=== PATIENT | male | born 1950 | race Caucasian/White ===

== ENCOUNTER 2021-11-25 16:30 | Emergency (ER) | payer BC ==
[~2021-11-25] VITALS: Ht 182.9 cm; Wt 66.7 kg
[~2021-11-25 16:30] MED LIST: ADDERALL 10 MG10 MG PO; AMBIEN 5 MG TABL5 M1 PO; ASPIR 8181 M1 PO; ATORVASTATIN CA40 MG PO; CELEXA20 MG PO; FLOMAX0.4 MG; LISINOPRIL5 MG PO; LOPRESSOR50 PO; NITROGLYCERIN0.4 MG; NORCO 5-325 TA1 EACH; OMEPRAZOLE40 MG PO; PERCOCET; XANAX 0.5 MG0.5 MG PO
[2021-11-25] MEDS ORDERED: CIPRO500 M1 PO (16:50)
[2021-11-25 17:19] LABS: URINE BILIRUBIN NEGATIVE (Negative); URINE BLOOD NEGATIVE (Negative); URINE COLOR YELLOW; URINE GLUCOSE-RANDOM NEGATIVE (Negative); URINE KETONES 1+ (Negative); URINE LEUKOCYTES-REFLEX TRACE (Negative); URINE NITRITE-REFLEX NEGATIVE (Negative); URINE PROTEIN NEGATIVE (Negative); URINE UROBILINOGEN 0.2 E.U./dl (0.2-1.0)
[2021-11-25] MEDS ORDERED: CEPHALEXIN500 MG PO (17:33)
[2021-11-25 17:43] LABS: URINE CLARITY HAZY
[2021-11-25 17:54] VITALS: BP 147/90
[2021-11-25 18:19] LABS: SQUAMOUS 4-10 Moderate /LPF (0-3)
[2021-11-25 18:20] LABS: BACTERIA-REFLEX None Seen /HPF (None Seen); CASTS None Seen /LPF (None Seen); CRYSTALS None Seen /LPF (None Seen); URINE RBC None Seen /HPF (0-2); URINE WBC-REFLEX 0-5 Rare /HPF (0-5)
== END 2021-11-25 17:55 | disposition home or self-care (01) ==
LOC: M.ERS 16:30
PROVIDERS: Physician Assistant
DX: N39.0 Urinary tract infection, site not specified (principal); F41.9 Anxiety disorder, unspecified; I10 Essential (primary) hypertension; E78.5 Hyperlipidemia, unspecified; Z98.61 Coronary angioplasty status; Z98.890 Other specified postprocedural states; Z90.49 Acquired absence of other specified parts of digestive tract; Z79.899 Other long term (current) drug therapy; Z79.82 Long term (current) use of aspirin; Z79.2 Long term (current) use of antibiotics; Z88.1 Allergy status to other antibiotic agents; R35.0 Frequency of micturition